=== PATIENT | male | born 1960 | race Caucasian/White ===

== ENCOUNTER 2016-11-01 01:17 | Emergency (ER) | payer BC ==
[2016-11-01 02:08] LABS: ANION GAP 14 (5-19); BLOOD UREA NITROGEN 12 mg/dL (7-20); CALCIUM 7.3 mg/dL (8.4-10.2); CARBON DIOXIDE 17 mmol/L (22-30); CHLORIDE 91 mmol/L (98-107); CREATINE KINASE 786 U/L (55-170); CREATININE RESULT 0.63 mg/dL (0.52-1.25); GLUCOSE 106 mg/dL (75-110); POTASSIUM 3.2 mmol/L (3.6-5.0); SODIUM 122.1 mmol/L (137-145)
[2016-11-01] MEDS ORDERED: NORMAL SALINE 1000 ML 1,000 ML IV ONE (02:24)
[2016-11-01 02:37] LABS: ALANINE AMINOTRANSFERASE 37 U/L (21-72); ALBUMIN 3.7 g/dL (3.5-5.0); ALKALINE PHOSPHATASE 61 U/L (38-126); ASPARTATE AMINO TRANSFERASE 36 U/L (17-59); BILIRUBIN,DIRECT 0.3 mg/dL (0.0-0.4); MAGNESIUM 1.3 mg/dL (1.6-2.3); TOTAL PROTEIN 6.5 g/dL (6.3-8.2)
[2016-11-01 02:44] LABS: APPEARANCE,URINE CLEAR; BILIRUBIN,URINE NEGATIVE (NEGATIVE); GLUCOSE, URINE 50 mg/dL (NEGATIVE); KETONES,URINE NEGATIVE (NEGATIVE); LEUKOCYTE ESTERASE,URINE NEGATIVE (NEGATIVE); NITRITE,URINE NEGATIVE (NEGATIVE); PROTEIN,URINE NEGATIVE (NEGATIVE); URINE SPECIFIC GRAVITY 1.005; UROBILINOGEN,URINE NEGATIVE mg/dL (<2.0)
[2016-11-01 02:57] LABS: VENOUS BLOOD BASE EXCESS -3.4 mmol/L; VENOUS BLOOD HCO3 20.5 mmol/L (20-32); VENOUS BLOOD PCO2 33.3 mmHg (35-63); VENOUS BLOOD PH 7.41 (7.30-7.42)
[2016-11-01 03:07] LABS: HEMATOCRIT 38.9 % (37.9-51.0); HEMOGLOBIN 12.7 g/dL (13.5-17.0); HGB HCT DIFFERENCE -0.8; MEAN CORPUSCULAR HEMOGLOBIN 27.9 pg (27.0-33.4); MEAN CORPUSCULAR HGB CONC 32.6 g/dL (32.0-36.0); MEAN CORPUSCULAR VOLUME 85 fl (80-97); RED BLOOD COUNT 4.55 10^6/uL (4.35-5.55); RED CELL DISTRIBUTION WIDTH 15.3 % (11.5-14.0); WHITE BLOOD COUNT 12.7 10^3/uL (4.0-10.5)
[2016-11-01 03:10] LABS: BASOPHILS % (MANUAL) 0 % (0-2); EOSINOPHILS % (MANUAL) 0 % (0-6); LYMPHOCYTES % (MANUAL) 15 % (13-45); TOTAL CELLS COUNTED 100
[2016-11-01 03:11] LABS: RBC MORPHOLOGY COMMENT NORMO-CYTIC/CHROMIC
[2016-11-01] MEDS ORDERED: MAGNESIUM SULFATE/D5W 100 ML IV ONE (03:39)
[2016-11-01] MEDS ORDERED: POTASSIUM CHLORIDE 10 MEQ TABLET.SA PO ONE ×2 (03:39→05:30)
[2016-11-01 05:17] LABS: ANION GAP 11 (5-19); BLOOD UREA NITROGEN 9 mg/dL (7-20); CALCIUM 7.6 mg/dL (8.4-10.2); CARBON DIOXIDE 21 mmol/L (22-30); CHLORIDE 96 mmol/L (98-107); CREATININE RESULT 0.56 mg/dL (0.52-1.25); GLUCOSE 202 mg/dL (75-110); POTASSIUM 3.4 mmol/L (3.6-5.0); SODIUM 128.2 mmol/L (137-145)
--- NOTE | 2016-11-01 05:39 | ER Document Report ---
ED General - General Chief Complaint: Diarrhea Stated Complaint: POSSIBLE DEHYDRATION Time Seen by Provider: 11/01/16 01:33 - HPI Patient complains to provider of: Dehydration Notes: Coming in for possible dehydration. 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 Patient states also during the day he was drinking energy drinks and generally does not do. Patient denies any fevers chills nausea vomiting. Patient denies any pain at this time. Patient was the 1 L of fluid via EMS states feeling much better at this time. - Related Data Allergies/Adverse Reactions: atorvastatin [From Lipitor] Allergy (Verified 11/01/16 03:45) Past Medical History - Social History Smoking Status: Unknown if Ever Smoked Family History: Reviewed & Not Pertinent Review of Systems - Review of Systems Constitutional: Other - Feeling unwell EENT: No symptoms reported Cardiovascular: No symptoms reported Respiratory: No symptoms reported Gastrointestinal: No symptoms reported Genitourinary: No symptoms reported Male Genitourinary: No symptoms reported Musculoskeletal: No symptoms reported Skin: No symptoms reported Hematologic/Lymphatic: No symptoms reported Neurological/Psychological: No symptoms reported -: Yes All other systems reviewed and negative Physical Exam - Vital signs Vitals: BP Pulse Ox 157/66 H 97 11/01/16 01:32 11/01/16 01:32 Interpretation: Normal - General General appearance: Appears well, Alert - HEENT Head: Normocephalic, Atraumatic Eyes: Normal Pupils: PERRL - Respiratory Respiratory status: No respiratory distress Chest status: Nontender Breath sounds: Normal Chest palpation: Normal - Cardiovascular Rhythm: Regular Heart sounds: Normal auscultation Murmur: No - Abdominal Inspection: Normal Distension: No distension Bowel sounds: Normal Tenderness: Nontender Organomegaly: No organomegaly - Back Back: Normal, Nontender - Extremities General upper extremity: Normal inspection, Nontender, Normal color, Normal ROM , Normal temperature General lower extremity: Normal inspection, Nontender, Normal color, Normal ROM , Normal temperature, Normal weight bearing. No: Sancho's sign - Neurological Neuro grossly intact: Yes Cognition: Normal Orientation: AAOx4 [place] Coma Scale Eye Opening: Spontaneous Abigail Coma Scale Verbal: Oriented Abigail Coma Scale Motor: Obeys Commands [place] Coma Scale Total: 15 Speech: Normal Motor strength normal: LUE, RUE, LLE, RLE Sensory: Normal - Psychological Associated symptoms: Normal affect, Normal mood - Skin Skin Temperature: Warm Skin Moisture: Dry Skin Color: Normal Course - Re-evaluation Re-evalutation: 11/01/16 05:28 Initial lab work did confirm dehydration with low bicarb and low sodium. Patient was given IV fluids here was able to tolerate Pedialyte and snacks. Repeat count showed increase in the patient's sodium. Patient states he is feeling better will discharge patient home follow-up primary care physician - Vital Signs Vital signs: Temp Pulse Resp BP Pulse Ox 22 H 150/68 H 97 11/01/16 03:38 11/01/16 04:31 11/01/16 02:02 - Laboratory Result Diagrams: 11/01/16 01:28 11/01/16 04:45 Laboratory results interpreted by me: 11/01/16 11/01/16 11/01/16 01:28 01:28 01:28 WBC 12.7 H Hgb 12.7 L RDW 15.3 H Abs Neuts (Manual) 9.9 H VBG pCO2 Sodium 122.1 L Potassium 3.2 L Chloride 91 L Carbon Dioxide 17 L Glucose Calcium 7.3 L Magnesium Creatine Kinase 786 H Urine Glucose (UA) 50 H 11/01/16 11/01/16 11/01/16 01:28 02:35 04:45 WBC Hgb RDW Abs Neuts (Manual) VBG pCO2 33.3 L Sodium 128.2 L Potassium 3.4 L Chloride 96 L Carbon Dioxide 21 L Glucose 202 H Calcium 7.6 L Magnesium 1.3 L Creatine Kinase Urine Glucose (UA) Discharge - Discharge Clinical Impression: Dehydration, Hypokalemia Condition: Good Disposition: HOME, SELF-CARE Instructions: Dehydration ([facility]), Hypokalemia ([facility]) Additional Instructions: I recommend to continue to drink plenty of fluids such as Gatorade Powerade that we will replace her electrolytes. I recommend following up with your primary care physician Forms: Return to Work
[2016-11-01 07:13] VITALS: BP 145/62
--- NOTE | 2016-11-01 08:26 | EKG REPORT ---
SEVERITY:- BORDERLINE ECG - SINUS RHYTHM BORDERLINE PROLONGED QT INTERVAL : Confirmed by: Jules Dickerson MD 01-Nov-2016 08:25:55
== END 2016-11-01 07:13 | disposition home or self-care (01) ==
LOC: ER 01:17
DX: E86.0 Dehydration (principal); E87.6 Hypokalemia; R19.7 Diarrhea, unspecified
CPT/HCPCS: 93005; 99284; 96361; 96365; 36415; 82550; 83735; 85025; 80076; 80048; 81001; 82803; 93010; J3475; J7030